=== PATIENT | female | born 1990 | race Caucasian/White ===

== ENCOUNTER 2017-10-15 18:04 | Emergency (ER) | payer BC ==
[2017-10-15 18:42] VITALS: BP 127/67
--- NOTE | 2017-10-15 19:34 | UC ---
Complaint Female HPI - HPI Summary HPI Summary: MILD INTERMITTENT RIGHT LOW BACK PAIN TODAY. YESTERDAY HAD SOME NAUSEA. TWO DAYS AGO HAD A HEADACHE. CONCERNED FOR UTI. NO FEVER. NO ABDOMINAL PAIN. NO CHANGES IN SEXUAL PARTNER, NO VAGINAL DISCOMFORT OR DISCHARGE. - History Of Current Complaint Chief Complaint: UCBackPain Stated Complaint: UTI Time Seen by Provider: 10/15/17 19:12 Hx Obtained From: Patient Hx Last Menstrual Period: 1 WEEK AGO Onset/Duration: Gradual Onset, Lasting Days, Resolved Timing: Intermittent Severity Initially: Mild Severity Currently: None Aggravating Factor(s): Urination Associated Signs And Symptoms: Positive: Back Pain, Nausea. Negative: Fever, Vaginal Bleeding/Discharge, Vaginal Discharge, Vomiting(# Of Episodes =), Genital Swelling, Genital Blisters - Risk Factors Ectopic Risk Factor: Negative Ovarian Torsion Risk Factor: Negative - Allergies/Home Medications Allergies/Adverse Reactions: Allergies Allergy/AdvReac Type Severity Reaction Status Date / Time Adhesive Tape AdvReac Rash Verified 10/15/17 18:42 Home Medications: Home Medications [id number] [Excedrin Migraine] 1 tab PO PRN 10/15/17 [ History] Levonorgestrel (Iud) [Mirena IUD] 10/15/17 [History] Omeprazole CAP* [Prilosec CAP* 20 MG] 40 mg PO DAILY 10/15/17 [History Confirmed 10/15/17] PMH/Surg Hx/FS Hx/Imm Hx Previously Healthy: Yes - Surgical History Surgical History: Yes Surgery Procedure, Year, and Place: C SECTION, 2009, CONN. LEFT EYE, 1995, [facility]N. [place] [facility] - Family History Known Family History: Negative: Renal Disease - Social History Occupation: Employed Full-time Alcohol Use: Occasionally Alcohol Amount: 4-6 PER WEEK Substance Use Type: None Smoking Status (MU): Former Smoker Type: Cigarettes Amount Used/How Often: 2 CIGS A WEEK "occassionally" Have You Smoked in the Last Year: No When Did the Patient Quit Smoking/Using Tobacco: 2010 Household Exposure Type: Cigarettes Review of Systems Constitutional: Negative Skin: Negative Eyes: Negative ENT: Negative Respiratory: Negative Cardiovascular: Negative Gastrointestinal: Nausea Genitourinary: Frequency Motor: Negative Neurovascular: Negative Musculoskeletal: Negative Neurological: Negative Psychological: Negative Is Patient Immunocompromised?: No All Other Systems Reviewed And Are Negative: Yes Physical Exam Triage Information Reviewed: Yes Appearance: Well-Appearing, No Pain Distress, Well-Nourished Vital Signs: Initial Vital Signs Temp 98.8 F 10/15/17 18:38 Pulse 78 10/15/17 18:38 Resp 16 10/15/17 18:38 BP 127/67 10/15/17 18:38 Pulse Ox 100 10/15/17 18:38 Vital Signs Reviewed: Yes Eye Exam: Normal ENT Exam: Normal ENT: Positive: Normal ENT inspection, Hearing grossly normal, Pharynx normal Dental Exam: Normal Neck exam: Normal Neck: Positive: Supple, Nontender, No Lymphadenopathy Respiratory Exam: Normal Respiratory: Positive: Chest non-tender, Lungs clear, Normal breath sounds, No respiratory distress, No accessory muscle use Cardiovascular Exam: Normal Cardiovascular: Positive: RRR, No Murmur, Pulses Normal, Brisk Capillary Refill Abdominal Exam: Normal Abdomen Description: Positive: Nontender, No Organomegaly, Soft Musculoskeletal Exam: Normal Musculoskeletal: Positive: Strength Intact, ROM Intact, No Edema Neurological Exam: Normal Psychological Exam: Normal Skin Exam: Normal Complaint Female Dx - Differential Dx/Diagnosis Differential Diagnosis/HQI/PQRI: Urinary Tract Infection Provider Diagnoses: DYSURIA Discharge - Discharge Plan Condition: Stable Disposition: HOME Patient Education Materials: Dysuria (ED) Referrals: Parker Wylie MD [Primary Care Provider] - Additional Instructions: PLEASE INFORM YOU PRIMARY CARE ABOUT YOUR SYMPTOMS. FOLLOW UP WITH ED OR PRIMARY CARE IF SYMPTOMS CONTINUE, IF FEVER DEVELOPS, OR IF SYMPTOMS WORSEN.
--- NOTE | 2017-10-18 10:25 | UC ---
Progress - Progress Note Progress Note: Urine culture, final: 1-10k strep group B Doubt UTI. Call patient with results and to check on condition. Arsen Olvera MD
== END 2017-10-15 19:33 | disposition home or self-care (01) ==
LOC: UCEAST 18:04
DX: R30.0 Dysuria (principal); M54.5 Low back pain; R11.0 Nausea; Z32.02 Encounter for pregnancy test, result negative; Z87.891 Personal history of nicotine dependence
CPT/HCPCS: 81003; 84702; 87077; 87086; 99211; G0463